=== PATIENT | male | born 1960 | race Caucasian/White ===

== ENCOUNTER 2016-11-07 11:37 | Day surgery (SDC) | payer OTHER ==
[2016-11-07] MEDS ORDERED: LACTATED RINGERS 900 ML IV ONE (13:14)
[2016-11-07] MEDS ORDERED: MIDAZOLAM 2 MG/2 ML VIAL IVP ONE (13:25)
[2016-11-07] MEDS ORDERED: fentaNYL 250 MCG/5 ML VIAL IVP ONE (13:25)
== END 2016-11-07 11:38 | disposition home or self-care (01) ==
PROC: 0DJD8ZZ Inspection of Lower Intestinal Tract, Via Natural or Artificial Opening Endoscopic (ICD-10-PCS; principal; 2016-11-07 12:45)
DX: Z12.11 Encounter for screening for malignant neoplasm of colon (principal); Z86.010 Personal history of colon polyps; K64.8 Other hemorrhoids; K64.4 Residual hemorrhoidal skin tags
CPT/HCPCS: 45378; J7120

== ENCOUNTER 2017-03-22 10:47 | Outpatient (CLI) | payer OTHER ==
--- NOTE | 2017-03-22 17:22 | Ultrasound Report ---
LIMITED ABDOMINAL ULTRASOUND: 03/22/2017 CLINICAL INDICATION: Palpable abnormality left lateral abdomen. TECHNIQUE: Real-time scanning was performed with maintenance representative static images obtained. Ultrasound of the left upper and lower quadrants was performed, as requested. The spleen measures 11 .3 cm, and demonstrates normal echotexture. The left kidney measures 11.9 cm, and demonstrates no hy dronephrosis. No free fluid is noted. The palpable abnormality identified by the patient in the lef t lateral abdominal wall correlates with a 4.1 x 3.8 x 0.8 cm lipoma. No sonographically suspicious findings are identified. IMPRESSION: SIMPLE LIPOMA ACCOUNTING FOR THE PALPABLE ABNORMALITY. NO HERNIA IS IDENTIFIED. JOB #: [id number] EXT JOB #:[id number]
--- NOTE | 2017-03-22 17:43 | XRAY Report ---
THREE VIEW LUMBAR SPINE: 03/22/2017 CLINICAL INDICATION: Back pain after fall 1-1/2 years ago. Frontal, lateral, coned-down views of the lumbar spine demonstrate minimal degenerative disk disease. There is no evidence of fracture or subluxation. The visualized bowel gas pattern is normal. IMPRESSION: MINIMAL DEGENERATIVE DISK DISEASE. NO EVIDENCE OF FRACTURE. JOB #: [id number] EXT JOB #:[id number]
== END 2017-03-22 10:48 | disposition home or self-care (01) ==
LOC: DI 10:47
PROVIDERS: ATTEND Naprapath
DX: M51.36 Other intervertebral disc degeneration, lumbar region (principal); D17.1 Benign lipomatous neoplasm of skin and subcutaneous tissue of trunk
CPT/HCPCS: 72100; 76705

== ENCOUNTER 2017-07-04 08:33 | Outpatient (CLI) | payer OTHER ==
[~2017-07-04 08:33] MED LIST: GADOBUTROL 7.5 MMOL/7.5 ML VIAL ONE
[2017-07-04] MEDS ORDERED: GADOBUTROL 7.5 MMOL/7.5 ML VIAL IVP ONE (09:07)
--- NOTE | 2017-07-04 18:59 | MRI Report ---
MRI LUMBAR SPINE WITHOUT AND WITH CONTRAST INDICATION: 57-year-old male with low back pain. History of prostate cancer. TECHNIQUE: 1. Sagittal STIR, T1 and T2. 2. Axial T1 and T2. 3. 7.5 mL IV Gadavist. T1 axial and fat saturated T1 sagittal. COMPARISON: None. FINDINGS: Radiographs (03/22/2017) have been reviewed, confirming the presence of 5 nonrib-bearing, lumbar-type vertebrae. The last fully articulated level has been labeled L5. Noted is a rudimentary S1-S2 disk. There is minimal stepwise retrolisthesis of L1 on L2 and L2 on L3. Alignment is otherwise unremarkabl e. Of note, there appears to be a defect through the left L5 pars interarticularis (see images #4 and 3 of series 301). The absence of any marrow edema confirms that this represents a long-standing abno rmality, rather than an acute fracture. There is no associated anterior subluxation of L5 on S1. Degenerative changes are demonstrated in the disks at all levels. However, the lumbar disk space heig hts appear relatively preserved. Benign fatty change is identified in the anterosuperior corner of the L2 vertebral body, probably sec ondary to degenerative disk disease. There is a small focus of T1 hypointensity, STIR hyperintensity and enhancement in the anterosuperior corner of the L3 vertebral body, probably secondary to degenera tive disk disease rather than representing infection. Multiple T1/T2 hyperintense foci are identified , scattered throughout the vertebrae, consistent with inhomogeneous fatty marrow replacement and/or m ultiple intraosseous hemangiomata. The marrow signal intensity is otherwise unremarkable. In particul ar, no pathologic marrow signal is demonstrated. The conus terminates in appropriate fashion above the L1-L2 disk level. There is no abnormal thickeni ng or lipomatous change of the filum. Axial images: L2-L3: Small left intra-/extra foraminal extrusion. Slightly larger, broad-based right intra-/extra f oraminal extrusion. Associated, annular fissure. Mild redundancy of ligamenta flava. Mild prominence of the intralaminar fat pad. No spinal stenosis. Mild bilateral foraminal stenoses. L3-L4: No disk herniation. Mild redundancy of ligamenta flava. No spinal stenosis. Mild foraminal shannan rowing. L4-L5: No disk herniation. No spinal stenosis. Minimal foraminal narrowing. L5-S1: Tiny posterocentral protrusion confined to the ventral epidural fat. No other disk herniation. Early degenerative facet arthrosis. No bony hypertrophy. No spinal canal or foraminal stenosis. Ther e is a very mild fatty atrophy in the posterior paraspinal musculature. IMPRESSION: 1. Unilateral left-sided pars interarticularis defect at L5 (nonacute) without associated anterolisth esis of L5 on S1. 2. Minor degenerative disk and facet changes are demonstrated in the lumbar spine. No associated spin al stenosis. No significant foraminal narrowing. No evidence of neural impingement. 3. Small focus of T1 hypointense and STIR hyperintense marrow signal change in the anterosuperior cor ner of the L3 vertebral body with enhancement. This probably represents reactive change secondary to degenerative disk disease. Infection could also cause this appearance; however, this is felt less lik иван. Clinical correlation is advised. In particular, is there any elevation of the WBC, CRP or ESR to suggest the possibility of infection? If there is, further workup for possible early osteomyelitis w ould be warranted. Referring Provider Line: [phone] SITE ID: [id number]
== END 2017-07-04 08:34 | disposition home or self-care (01) ==
LOC: DI 08:33
PROVIDERS: ATTEND Naturopath
DX: M51.36 Other intervertebral disc degeneration, lumbar region (principal); M51.26 Other intervertebral disc displacement, lumbar region
CPT/HCPCS: 72158; A9585